=== PATIENT | female | born 1955 | race Caucasian/White ===

== ENCOUNTER → 2018-04-26 | Outpatient (CLI) | payer OTHER | END | disposition home or self-care (01) | LOC: CFH 10:59 | PROVIDERS: ATTEND Obstetrics & Gynecology | DX: Z12.31 Encounter for screening mammogram for malignant neoplasm of breast (principal) | CPT/HCPCS: 77067 ==

== ENCOUNTER → 2019-04-29 | Outpatient (CLI) | payer OTHER | END | disposition home or self-care (01) | LOC: CFH 09:59 | PROVIDERS: ATTEND Obstetrics & Gynecology | DX: Z12.31 Encounter for screening mammogram for malignant neoplasm of breast (principal) | CPT/HCPCS: 77067 ==